=== PATIENT | male | born 1990 | race Two or more races ===

== ENCOUNTER 2018-08-09 03:35 | Day surgery (SDC) | payer SELFPAY ==
[2018-08-09] MEDS ORDERED: ONDANSETRON HCL INJ/PF 4 MG/2 ML SDV IV ONE (04:12)
[2018-08-09] MEDS ORDERED: MORPHINE SULFATE 10 MG/ML INJ IV ONE (04:12)
[2018-08-09 04:45] LABS: ABSOLUTE BASOPHILS # (AUTO) 0.1 10^3/uL (0.0-0.2); ABSOLUTE LYMPHOCYTES (AUTO) 1.3 10^3/uL (0.5-4.7); ABSOLUTE MONOCYTES (AUTO) 1.7 10^3/uL (0.1-1.4); ABSOLUTE NEUT (AUTO) 11.8 10^3/uL (1.7-8.2); BASOPHILS % (AUTO) 0.5 % (0-2); HEMATOCRIT 41.2 % (37.9-51.0); HEMOGLOBIN 14.5 g/dL (13.5-17.0); LYMPHOCYTES % (AUTO) 8.7 % (13-45); MEAN CORPUSCULAR HEMOGLOBIN 29.9 pg (27.0-33.4); MEAN CORPUSCULAR HGB CONC 35.2 g/dL (32.0-36.0); MEAN CORPUSCULAR VOLUME 85 fl (80-97); MONOCYTES % (AUTO) 11.5 % (3-13); PLATELET COUNT 281 10^3/uL (150-450); RED BLOOD COUNT 4.86 10^6/uL (4.35-5.55); RED CELL DISTRIBUTION WIDTH 12.5 % (11.5-14.0); SEGMENTED NEUTROPHILS % (AUTO) 79.3 % (42-78); TOTAL CELLS COUNTED % (AUTO) 100 %; WHITE BLOOD COUNT 14.9 10^3/uL (4.0-10.5)
[2018-08-09 05:04] LABS: ALANINE AMINOTRANSFERASE 36 U/L (21-72); ALBUMIN 4.9 g/dL (3.5-5.0); ALKALINE PHOSPHATASE 75 U/L (38-126); ANION GAP 12 (5-19); ASPARTATE AMINO TRANSFERASE 29 U/L (17-59); BILIRUBIN,DIRECT 0.2 mg/dL (0.0-0.4); BLOOD UREA NITROGEN 18 mg/dL (7-20); CALCIUM 9.9 mg/dL (8.4-10.2); CARBON DIOXIDE 26 mmol/L (22-30); CHLORIDE 100 mmol/L (98-107); GLUCOSE 110 mg/dL (75-110); POTASSIUM 4.1 mmol/L (3.6-5.0); SODIUM 138.4 mmol/L (137-145); TOTAL PROTEIN 7.8 g/dL (6.3-8.2)
[2018-08-09 05:59] LABS: APPEARANCE,URINE CLEAR; BILIRUBIN,URINE NEGATIVE (NEGATIVE); COLOR,URINE STRAW; GLUCOSE, URINE NEGATIVE (NEGATIVE); KETONES,URINE 20 mg/dL (NEGATIVE); LEUKOCYTE ESTERASE,URINE NEGATIVE (NEGATIVE); NITRITE,URINE NEGATIVE (NEGATIVE); PROTEIN,URINE NEGATIVE (NEGATIVE); URINE SPECIFIC GRAVITY 1.005; UROBILINOGEN,URINE NEGATIVE mg/dL (<2.0)
--- NOTE | 2018-08-09 06:03 | RADIOLOGY REPORT (SQ) ---
EXAM DESCRIPTION: CT ABDOMEN PELVIS WITH IV CONTRAST COMPLETED DATE/TME: 08/09/2018 04:11 CLINICAL HISTORY:27 years Male, RLQ pain Comparison: None TECHNIQUE: Contiguous axial CT images of the abdomen and pelvis were obtained. Sagittal and coronal reformats were reviewed. This exam was performed according to our departmental dose-optimization program, which includes automated exposure control, adjustment of the mA and/or kV according to patient size and/or use of iterative reconstruction technique. FINDINGS: Lung bases: Clear. Liver:Unremarkable. No focal liver lesion. Gallbladder:Unremarkable. No gallstones. No gallbladder wall thickening or pericholecystic fluid. Spleen:Unremarkable Pancreas: Pancreas is unremarkable. Adrenal glands:Within normal limits. Kidneys/ureters:Within normal limits Stomach/small bowel/colon: Stomach is unremarkable. Small bowel is unremarkable. Colon is unremarkable. Appendix: Dilated appendix measuring up to 11 mm in diameter with wall thickening and surrounding inflammatory changes. Findings consistent with acute appendicitis. Peritoneum: No free fluid. Vascular structures: within normal limits Lymph nodes: No abnormal lymph nodes. Bladder:Unremarkable. Pelvic organs: No acute abnormality Bones: No acute osseous abnormality. Soft tissues: Unremarkable.. IMPRESSION: Early acute appendicitis.
[2018-08-09] MEDS ORDERED: METRONIDAZOLE 500 MG TABLET PO ONE (06:31)
[2018-08-09] MEDS ORDERED: CEFTRIAXONE 1 GM/D5W RTU 1 GM/50 ML RTUPB IV ONE (06:31)
--- NOTE | 2018-08-09 06:34 | ER Document Report ---
ED General - General Chief Complaint: Abdominal Pain Stated Complaint: ABDOMINAL PAIN Time Seen by Provider: 08/09/18 04:11 Notes: Patient is a 27-year-old male presents the emergency department with generalized right lower quadrant abdominal pain starting around 2000 hrs. last evening. Patient states he has not vomited and does not feel nauseated but had had 3 episodes of diarrhea. Patient denies any fever. Patient states the pain miguelito nued despite Tylenol administration around 2300 hrs. which is why he never really presents to the emergency room. Patient states the last time he ate anything was around 1600 hrs. yesterday and states he did take Tylenol around 2300 with water. Past medical history: None Medications: None Allergies: None TRAVEL OUTSIDE OF THE [place] IN LAST 30 DAYS: No Past Medical History - General Information source: Patient - Social History Smoking Status: Unknown if Ever Smoked Family History: Reviewed & Not Pertinent Review of Systems - Review of Systems Constitutional: See HPI EENT: No symptoms reported Cardiovascular: No symptoms reported Respiratory: No symptoms reported Gastrointestinal: See HPI Genitourinary: denies: Burning, Dysuria Male Genitourinary: No symptoms reported Musculoskeletal: No symptoms reported Skin: No symptoms reported Hematologic/Lymphatic: No symptoms reported Neurological/Psychological: No symptoms reported Physical Exam - Vital signs Vitals: Temp Pulse Resp BP Pulse Ox 98.0 F 90 16 112/67 99 08/09/18 03:39 08/09/18 03:39 08/09/18 03:39 08/09/18 03:39 08/09/18 03:39 - Notes Notes: GENERAL: Alert, interacts well. No acute distress. HEAD: Normocephalic, atraumatic. EYES: Pupils equal, round, and reactive to light. Extraocular movements intact. ENT: Oral mucosa moist, tongue midline. NECK: Full range of motion. Supple. Trachea midline. LUNGS: Clear to auscultation bilaterally, no wheezes, rales, or rhonchi. No respiratory distress. HEART: Regular rate and rhythm. No murmur ABDOMEN: Soft, Non-distended. Bowel sounds present in all 4 quadrants. Positive McBurney's point tenderness, no Vang sign noted. EXTREMITIES: Moves all 4 extremities spontaneously. No edema, normal radial and dorsalis pedis pulses bilaterally. No cyanosis. BACK: no cervical, thoracic, lumbar midline tenderness. No saddle anesthesia, normal distal neurovascular exam. NEUROLOGICAL: Alert and oriented x3. Normal speech. cranial nerves II through XII grossly intact PSYCH: Normal affect, normal mood. SKIN: Warm, dry, normal turgor. No rashes or lesions noted. Bilateral testicles descended with no erythema, or swelling noted. Manager Field Service Janelle RODRIGUEZ. Course - Re-evaluation Re-evalutation: 08/09/18 06:[address] results acute appendicitis with surgeon Dr. Siddiqi who requests starting the patient on Rocephin and Flagyl. He states he will come to the emergency room to evaluate the patient. Dr. Siddiqi stated he will take the pt. to surgery. Pt. stable at this time. - Vital Signs Vital signs: Temp Pulse Resp BP Pulse Ox 98.0 F 90 16 112/55 L 97 08/09/18 03:39 08/09/18 03:39 08/09/18 05:01 08/09/18 05:01 08/09/18 05:01 - Laboratory Result Diagrams: 08/09/18 04:30 08/09/18 04:30 Laboratory results interpreted by me: 08/09/18 08/09/18 04:30 04:30 WBC 14.9 H Seg Neutrophils % 79.3 H Lymphocytes % 8.7 L Absolute Neutrophils 11.8 H Absolute Monocytes 1.7 H Urine Ketones 20 H Urine Blood SMALL H Discharge - Discharge Clinical Impression: Appendicitis Qualifiers: Appendicitis type: acute appendicitis Acute appendicitis type: other Qualified Code(s): K35.890 - Other acute appendicitis without perforation or gangrene Condition: Stable Disposition: ADMITTED INPATIENT Admitting Provider: Surgicalist - Dr. Siddiqi Unit Admitted: OR
[2018-08-09] MEDS ORDERED: NORMAL SALINE 1000 ML 2,000 ML IV ONE (07:08)
[2018-08-09] MEDS ORDERED: NORMAL SALINE 1000 ML 1,000 ML IV PRN (07:10)
--- NOTE | 2018-08-09 07:16 | PDOC H&P ---
History of Present Illness Admission Date/PCP: 08/09/18 Patient complains of: RLQ abdominal pain History of Present Illness: LAW OGDEN is a 27 year old male, healthy with a hx of RLQ pain, nausea. found to have leukocytosis and acute early appendicitis on CT scan A/P today. Social History Smoking Status: Unknown if Ever Smoked Family History Family History: None, Reviewed & Not Pertinent Parental Family History Reviewed: No Children Family History Reviewed: No Sibling(s) Family History Reviewed.: No Physical Exam Vital Signs: Temp Pulse Resp BP Pulse Ox 98.0 F 90 16 112/55 L 97 08/09/18 03:39 08/09/18 03:39 08/09/18 05:01 08/09/18 05:01 08/09/18 05:01 Intake & Output 08/08/18 08/09/18 08/10/18 06:59 06:59 06:59 Weight 75.4 kg General appearance: PRESENT: no acute distress Head exam: PRESENT: atraumatic Mouth exam: PRESENT: dry mucosa, neck supple Neck exam: PRESENT: full ROM Respiratory exam: PRESENT: clear to auscultation krissy Cardiovascular exam: PRESENT: RRR GI/Abdominal exam: PRESENT: hypoactive bowel sounds, soft, tenderness - RLQ tenderness Rectal exam: PRESENT: deferred Neurological exam: PRESENT: alert, altered Skin exam: PRESENT: warm Results Laboratory Results: 08/09/18 04:30 08/09/18 04:30 08/09/18 08/09/18 08/09/18 04:30 04:30 04:30 WBC 14.9 H RBC 4.86 Hgb 14.5 Hct 41.2 MCV 85 MCH 29.9 MCHC 35.2 RDW 12.5 Plt Count 281 Seg Neutrophils % 79.3 H Lymphocytes % 8.7 L Monocytes % 11.5 Eosinophils % 0.0 Basophils % 0.5 Absolute Neutrophils 11.8 H Absolute Lymphocytes 1.3 Absolute Monocytes 1.7 H Absolute Eosinophils 0.0 Absolute Basophils 0.1 Sodium 138.4 Potassium 4.1 Chloride 100 Carbon Dioxide 26 Anion Gap 12 BUN 18 Creatinine 0.93 Est GFR ( Amer) > 60 Est GFR (Non-Af Amer) > 60 Glucose 110 Calcium 9.9 Total Bilirubin 1.0 AST 29 ALT 36 Alkaline Phosphatase 75 Total Protein 7.8 Albumin 4.9 Urine Color STRAW Urine Appearance CLEAR Urine pH 6.0 Ur Specific [place] 1.005 Urine Protein NEGATIVE Urine Glucose (UA) NEGATIVE Urine Ketones 20 H Urine Blood SMALL H Urine Nitrite NEGATIVE Ur Leukocyte Esterase NEGATIVE Urine WBC (Auto) 1 Impressions: Abdomen/Pelvis CT 08/09/18 04:11 IMPRESSION: Early acute appendicitis. Assessment & Plan - Diagnosis (1) Appendicitis Qualifiers: Appendicitis type: acute appendicitis Acute appendicitis type: with localized peritonitis Qualified Code(s): K35.890 - Other acute appendicitis without perforation or gangrene; K35.89 - Other acute appendicitis Is this a current diagnosis for this admission?: Yes - Plan Summary Plan Summary: A/ RLQ abdominal pain acute appendicits on CT scan A/P leukocytosis P/ laparoscopic appendectomy, possible open. NPO IVF NS bolus plus IV Rocehin IV Flagyl Procedure, risks, benefits, complications explained to the patient and father, they understand, their questions were answered and he decides to proceed
[2018-08-09] MEDS ORDERED: BUPIVACAINE HCL 0.5%-EPI 1:200000 INJ/PF 30 ML VIAL ONE (07:48)
[2018-08-09] MEDS ORDERED: METRONIDAZOLE 500 MG/NS RTU 500 MG/100 ML RTUPB IV ONE ×2 (08:30→09:41)
[2018-08-09] MEDS ORDERED: PROPOFOL INJ 200 MG/20 ML VIAL IV ONE (09:29)
[2018-08-09] MEDS ORDERED: MIDAZOLAM 2 MG/2 ML INJ ONE (09:29)
[2018-08-09] MEDS ORDERED: FENTANYL CITRATE INJ/PF 100 MCG/2 ML AMPUL ONE (09:29)
[2018-08-09] MEDS ORDERED: HYDROMORPHONE HCL INJ/PF 2 MG/ML AMPULE ONE (09:30)
[2018-08-09] MEDS ORDERED: ACETAMINOPHEN 1,000 MG/100 ML RTUPB IV ONE (09:30)
[2018-08-09] MEDS ORDERED: MEPERIDINE HCL/PF INJ 25 MG/1 ML DISP.SYRIN IV PRN (10:25)
[2018-08-09] MEDS ORDERED: FENTANYL CITRATE INJ/PF 100 MCG/2 ML AMPUL IV PRN ×3 (10:25)
[2018-08-09] MEDS ORDERED: PROMETHAZINE HCL INJ 25 MG/1 ML VIAL IV PRN (10:25)
--- NOTE | 2018-08-09 10:50 | Operative Report ---
Nonrecallable Operative Report DATE OF SURGERY: 08/09/18 PREOPERATIVE DIAGNOSIS: acute appendicitis POSTOPERATIVE DIAGNOSIS: acute, non perforated appendicitis OPERATION: laparoscopic appendectomy SURGEON: KIARRA BORJA ANESTHESIA: GA - plus local anesthetic 10 mL 0.5% marcaine COMPLICATIONS: none INTRAOPERATIVE FINDINGS: acute appendicitis PROCEDURE: see dictation
[2018-08-09] MEDS ORDERED: TRAMADOL HCL 50 MG TABLET PO PRN (11:34)
[2018-08-09] MEDS ORDERED: ACETAMINOPHEN 325 MG TABLET PO PRN (11:35)
[2018-08-09] MEDS ORDERED: ONDANSETRON HCL INJ/PF 4 MG/2 ML SDV IV PRN (11:36)
--- NOTE | 2018-08-09 11:36 | OPERATIVE REPORT E ---
Operative Report NAME: LAW OGDEN : 1990 AGE: 27Y DATE OF SURGERY: 08/09/2018 ROOM: ED02 PREOPERATIVE DIAGNOSIS: Acute noncomplicated appendicitis. POSTOPERATIVE DIAGNOSIS: Acute noncomplicated appendicitis. OPERATION: Laparoscopic appendectomy. SURGEON: KIARRA BORJA M.D. AQUACULTURE WORKER: None. ANESTHESIA: General plus 10 mL of 0.5% Marcaine with epinephrine. ESTIMATED BLOOD LOSS: Less than 5 mL. COMPLICATIONS: None. FLUIDS: None. URINE OUTPUT: 100 mL. INDICATION AND FINDINGS: A healthy 27-year-old male who presented to the emergency room complaining of right upper quadrant pain, found to have acute appendicitis on the CT scan. The patient also had mild leukocytosis with a white blood cell count of 14.9. The patient was scheduled to undergo laparoscopic appendectomy with possible open. The procedure was explained, potential complications were explained to the patient, and the patient decided to proceed. PROCEDURE: The procedure was done in the operating room. The patient was placed in the supine position. General anesthesia was induced with endotracheal intubation. The abdomen was prepped and draped in the usual fashion. An incision was made just above the umbilicus. A 5 mm port was inserted into the abdominal wall into the peritoneal cavity. CO2 insufflation was then established. Under direct visualization a 5 mm port was inserted in the right upper quadrant of the abdomen. The 5 mm port in the umbilicus was removed and replaced with a 12 mm port. A 5 mm port was inserted through an incision in the left lower quadrant of the abdomen. The patient was placed in Trendelenburg position with the right side elevated. The appendix was found to be anterior and was grasped, stretched. The mesoappendix beyond the appendiceal base was divided with a LigaSure and the appendix was stapled to the base using a laparoscopic stapler with blue load. The appendix was extracted from the abdominal cavity with an Endobag. CO2 pneumoperitoneum was re-established. The abdominal cavity was examined. Then it was irrigated with about 50 mL of normal saline which was fully aspirated. The staple line of the appendiceal stump was found to be intact. The fascial defect at the umbilicus was closed with [id number] 0-Vicryl suture under direct visualization using a fascial closure device. The suture was left untied. All instruments were removed. The CO2 pneumoperitoneum was released. The ports were removed. The fascial defect at the umbilicus was closed with the previously placed 0-Vicryl suture. All skin incisions were closed with 4-0 Vicryl running subcuticular suture and Steri-Strips were applied. The patient tolerated the procedure well and was extubated and transferred to the recovery room in satisfactory condition. DICTATING PHYSICIAN: KIARRA BORJA M.D. [id number] PHY#: [id number] ID: [id number] JOB#: [id number] ACCT: [id number] cc:KIARRA BORJA M.D. >
[2018-08-09] MEDS ORDERED: NEOSTIGMINE METHYLSULFATE 10 MG/10 ML VIAL ONE (11:39)
[2018-08-09] MEDS ORDERED: ROCURONIUM BROMIDE INJ 50 MG/5 ML VIAL IV ONE (11:39)
[2018-08-09] MEDS ORDERED: GLYCOPYRROLATE 1 MG/5 ML SYRINGE ONE (11:39)
[2018-08-09] MEDS ORDERED: ONDANSETRON HCL INJ/PF 4 MG/2 ML SDV ONE (11:39)
[2018-08-09] MEDS ORDERED: DEXAMETHASONE SOD PHOSPHATE INJ 4 MG/1 ML VIAL ONE (11:39)
[2018-08-09] MEDS ORDERED: LIDOCAINE 2% INJ-PF (20 MG/ML) 2 ML AMPUL ONE (11:39)
[2018-08-09] MEDS ORDERED: SUCCINYLCHOLINE CHLORIDE INJ 200 MG/10 ML VIAL ONE (11:39)
[2018-08-09] MEDS ORDERED: TRAMADOL HCL 50 MG TABLET ONE (11:47)
[2018-08-09] MEDS ORDERED: TRAMADOL HCL 50 MG TABLET PO ONE (11:50)
[2018-08-09 13:17] VITALS: BP 126/68
== END 2018-08-09 13:30 | disposition home or self-care (01) ==
LOC: ER 03:35 → UNDOADMOB 07:23 → EH 07:23 → INTOOBSV 07:23 → ASU 07:30 → UNDODISOB 13:30 → ASU 13:30
PROVIDERS: ATTEND Surgery
DX: K35.890 Other acute appendicitis without perforation or gangrene (principal); D72.829 Elevated white blood cell count, unspecified
CPT/HCPCS: 99285; 96374; 96375; 36415; 85025; 80053; 81001; 88304 ×2; 74177; G0378; J2250; J3490 ×4; J1100; J2270; J1170; J0330; J2405; J7030; J2704; J0696; J0131; 840; J3010